=== PATIENT | male | born 1940 | race Caucasian/White ===

== ENCOUNTER 2019-01-12 10:10 | Day surgery (SDC) | payer MEDICARE, BC ==
[~2019-01-12 10:10] MED LIST: ACETAMINOPHEN 1,000 MG/100 ML BTL IV ONE
[2019-01-12] MEDS ORDERED: PROPOFOL 10 MG/ML VIAL IV ONE (10:11)
[2019-01-12] MEDS ORDERED: FENTANYL PF 100MCG/2ML VIAL IV ONE (10:11)
[2019-01-12] MEDS ORDERED: ACETAMINOPHEN W/ CODEINE 300MG/30MG TABLET PO ONE ×3 (10:11→13:22)
[2019-01-12] MEDS ORDERED: MIDAZOLAM HCL 2MG/2ML VIAL IV ONE (10:11)
[2019-01-12] MEDS ORDERED: KETOROLAC 30 MG/ML VIAL IVP ONE (10:11)
[2019-01-12] MEDS ORDERED: LIDOCAINE 2% MDV (20MG/ML) 20ML VIAL IV ONE (10:11)
[2019-01-12] MEDS ORDERED: SEVOFLURANE 250 ML INH ONE (10:11)
[2019-01-12] MEDS ORDERED: ONDANSETRON HCL IV 4 MG/2 ML VIAL IVP ONE (10:11)
[2019-01-12] MEDS ORDERED: RINGERS SOLUTION,LACTATED 1,000 ML IV ONE (12:14)
[2019-01-12] MEDS ORDERED: MORPHINE SULFATE 10 MG/ML VIAL IM ONE (12:29)
[2019-01-12] MEDS ORDERED: MORPHINE SULFATE 4 MG/ML VIAL IM ONE (13:00)
--- NOTE | 2019-01-13 07:10 | Operative Note ---
DATE OF SURGERY: 01/12/2019 Surgeon: Marcus Parish DO PREOPERATIVE DIAGNOSIS: Dupuytren's contracture of the left palm and left ring finger. POSTOPERATIVE DIAGNOSIS: Dupuytren's contracture of the left palm and left ring finger. OPERATION: Fasciotomy of the left ring finger and left palm using 3.5 loop magnification. DESCRIPTION OF PROCEDURE: This 78-year-old male was taken to the operating room and placed in the supine position on the operating room table. General anesthetic was administered. The left upper extremity was elevated. It was prepped with Hibiclens and draped in the usual sterile fashion. It was exsanguinated and the tourniquet inflated to 250 mmHg. The lead hand was used to support the hand during the operative procedure, and we began by making a zigzag type incision starting at approximately the level of the base of the thumb overlying the 4th ray, and dissection was carried down to the level of the metacarpophalangeal joint and an incision was made over the proximal phalanx as well because of contracted tissue also being identified in the finger. Once the incision had been completely opened, it was necessary for us to do some undermining under the skin to release the contractures in the skin, and the proximal edge of the cord was grasped and it was detached proximally first and then it was elevated and using blunt and sharp dissection on both sides, we were able to peel it down to the level of the metacarpal head. It broadened out in this location and then we extended down into the finger taking care to avoid the neurovascular structures. Once the cord had been removed, the wound was irrigated with lactated Ringer's solution and hemostasis was obtained with the electrocautery. We felt that the cord and contracture had been satisfactorily removed. The finger went completely straight. We then closed this wound with interrupted 6-0 nylon sutures, corner stitches being placed at the zigzag portions of the incision and standard simple sutures in the remainder of the incision. After completion, sterile dressings were applied with a plaster splint with the metacarpophalangeal joint of the ring finger in full extension and this was a well-padded splint in the palm with fluffs. The patient was then taken to the recovery room in satisfactory condition. GROSS PATHOLOGY: The patient demonstrated Dupuytren's contracture. There were multiple contractures in the skin just below the metacarpal head at the distal palmar line, and these were released from the palmar fascia and then the palmar fascia cord was released into the ring finger. The operative procedure was performed with 3.5 loop magnification. CC: MD FLORENCIO Dee
== END 2019-01-12 13:30 | disposition home or self-care (01) ==
LOC: SUR 10:10
PROVIDERS: ATTEND Orthopaedic Surgery
DX: M72.0 Palmar fascial fibromatosis [Dupuytren] (principal); E78.00 Pure hypercholesterolemia, unspecified; N40.0 Benign prostatic hyperplasia without lower urinary tract symptoms; K21.9 Gastro-esophageal reflux disease without esophagitis
CPT/HCPCS: 26045; 01810; J1885; J2405; J3010; J2270; J7120

== ENCOUNTER 2019-08-05 15:30 | Emergency (ER) | payer MEDICARE, BC ==
--- NOTE | 2019-08-05 16:02 | Emergency Department Record ---
History of Present Illness - General Chief complaint: Nausea, Vomiting, Diarrhea Stated complaint: POSSIBLE C-DIF Time Seen by Provider: 08/05/19 15:52 Mode of Arrival: Ambulatory - History of Present Illness Initial comments: diarrhea which started 5 days ago with 20 times per day and he was on augmentin about 3 weeks ago for bronchitis and he has chronic diarrhea because he has lots of bile. Patient is using imodium and cholesttyramine Onset/Timin -: Days(s) Description of Diarrhea: Mucous Associated Abdominal Pain: Yes Location: Diffuse Quality: Cramping Consistency: Intermittent Improves with: None Worsens with: None Associated Symptoms: Other - Related Data Home Medications Medication Instructions Recorded Confirmed Last Taken C,E,Zinc,Copper 24/Om3/Lut/Naldo 1 each PO DAILY 08/05/19 08/05/19 Unknown [Ocuvite Adult 50 Plus Softgel] Cartilage/Collagen/Bor/Hyalur 1 each PO DAILY 08/05/19 08/05/19 Unknown [Move Free Ultra Tablet] Colestipol HCl 1 gm PO DAILY 08/05/19 08/05/19 Unknown Krill/Om-3/Dha/Epa/Phospho/Ast 1 each PO DAILY 08/05/19 08/05/19 Unknown [Megared [place]-3 Krill Oil Sfgl] Allergies Allergy/AdvReac Type Severity Reaction Status Date / Time Sulfa (Sulfonamide Allergy HIVES Unverified 07/06/19 08:07 Antibiotics) cefaclor [From Ceclor] AdvReac RASH Unverified 07/06/19 08:07 ranitidine HCl [From Zantac] AdvReac ITCHING Unverified 07/06/19 08:07 Travel Screening - Travel/Exposure Within Last 30 Days Have you traveled within the last 30 days?: No Past Medical History - SOCIAL HISTORY Smoking Status: Former smoker - RESPIRATORY Hx Respiratory Disorders: Yes Hx Bronchitis: Yes - CARDIOVASCULAR Hx Cardio Disorders: No - NEURO Hx Neuro Disorders: Yes Hx Dizziness: Yes (AT TIMES R/T DEHYDRATION) - GI Hx GI Disorders: Yes Hx Reflux: Yes Hx Ulcer: Yes Hx of Polyps: Yes Comment:: chronic diarrhea - Hx Genitourinary Disorders: Yes Hx Bladder Problem: Yes (NOCTURIA) Hx Kidney Stones: Yes (HX OF) Hx Prostate Problems: Yes - ENDOCRINE Hx Endocrine Disorders: No - MUSCULOSKELETAL Hx Musculoskeletal Disorders: Yes Hx Arthritis: Yes Comment:: DUPUTRENS LEFT PALM AND 4 TH FINGER - PSYCH Hx Psych Problems: Yes Hx Depression: Yes - HEMATOLOGY/ONCOLOGY Hx Hematology/Oncology Disorders: Yes Hx Cancer: Yes (basal cell nose AND BACK) Hx Radiation Therapy: Yes Family Medical History Any Significant Family History?: Yes Hx Cancer: Mother *Cancer Comment: Mother-lymphoma Hx Heart Disease: Father Hx Stroke: Father Course Vital Signs 08/05/19 15:38 Temperature 97.9 F Pulse Rate 73 Respiratory 18 Rate Blood Pressure 125/88 Pulse Ox 95 Medical Decision Making - Data Complexity MDM Data: Labs Ordered and/or Reviewed (cdiff negative) - Lab Data Result diagrams: 08/05/19 16:35 08/05/19 16:35 Disposition Clinical Impression: Diarrhea Qualifiers: Diarrhea type: unspecified type Qualified Code(s): R19.7 - Diarrhea, unspecified Disposition: Home, Self-Care Condition: (2) Stable Instructions: Acute Diarrhea (ED), Chronic Diarrhea (ED) Additional Instructions: follow up with family Dr in 4 days continue current meds Forms: Patient Portal Access Time of Disposition: 17:58 Quality - Quality Measures Quality Measures: N/A - Blood Pressure Screening Does Patient Have Any of the Following: No Blood Pressure Classification: Pre-Hypertensive BP Reading Systolic Measurement: 125 Diastolic Measurement: 88 Screening for High Blood Pressure: < Pre-Hypertensive BP, F/U Documented > [G8950] Pre-Hypertensive Follow-up Interventions: Referral to alternative/primary care provider.
[2019-08-05] MEDS ORDERED: 0.9 % SODIUM CHLORIDE 1,000 ML BAG IV ONE (16:06)
[2019-08-05 16:44] LABS: ABSOLUTE NEUTROPHIL COUNT 2.12; BASO % 1.1 % (0-6); EOS % 4.8 % (0-6); GRAN % 47.9 % (47-80); HEMOGLOBIN 14.2 gm/dl (14.0-18.0); LYMPH % 38.7 % (16-45); MEAN CORPUSCULAR HEMOGLOBIN 31.7 pg (27-33); MEAN PLATELET VOLUME 10.1 fl (7.4-10.4); MONO % 7.5 % (0-9); PLATELET COUNT 193 K/uL (130-400); RED BLOOD COUNT 4.48 M/uL (4.40-5.70); RED CELL DISTRIBUTION WIDTH 13.1 % (11.5-14.5); WHITE BLOOD COUNT W/O DIFF 4.4 K/uL (4.2-12.2)
[2019-08-05 16:57] LABS: BLOOD UREA NITROGEN 18 mg/dL (8-23)
[2019-08-05 16:58] LABS: EST GLOMERULAR FILTRATION RATE > 60 mL/min; LIPASE 34 U/L (13-60); TOTAL PROTEIN 7.4 g/dL (6.6-8.7)
[2019-08-05 17:00] LABS: GLUCOSE,RANDOM 126 mg/dL (74-109)
[2019-08-05 17:03] LABS: ALBUMIN 4.5 g/dL (4.0-5.0); ALKALINE PHOSPHATASE 79 U/L (40-129); ALT/SGPT 35 U/L (<41); AST/SGOT 25 U/L (10.0-50.0); BILIRUBIN,DIRECT < 0.2 mg/dL (0-0.3)
== END 2019-08-05 18:22 | disposition home or self-care (01) ==
LOC: ER 15:30
DX: R19.7 Diarrhea, unspecified (principal); R11.2 Nausea with vomiting, unspecified; Z87.891 Personal history of nicotine dependence
CPT/HCPCS: 80048; 80076; 82272; 83690; 85025; 87493; 96360; 99284; J7030

== ENCOUNTER 2019-11-09 06:14 | Day surgery (SDC) | payer MEDICARE ==
[~2019-11-09 06:14] MED LIST changes: -ACETAMINOPHEN 1,000 MG/100 ML BTL IV ONE; +ACETAMINOPHEN 1,000 MG/100 ML BTL IVPB ONE
[2019-11-09] MEDS ORDERED: MIDAZOLAM HCL 2MG/2ML VIAL IV ONE (06:15)
[2019-11-09] MEDS ORDERED: FENTANYL PF 100MCG/2ML VIAL IV ONE (06:15)
[2019-11-09] MEDS ORDERED: LIDOCAINE 2% MDV (20MG/ML) 20ML VIAL IV ONE (06:15)
[2019-11-09] MEDS ORDERED: PROPOFOL 10 MG/ML VIAL IV ONE (06:15)
[2019-11-09] MEDS ORDERED: RINGERS SOLUTION,LACTATED 1,000 ML IV ONE (06:45)
[2019-11-09] MEDS ORDERED: LIDOCAINE 1% MPF 100MG/10ML STERILE-PAK AMPULE SQ ONE (08:31)
--- NOTE | 2019-11-09 12:29 | Operative Note ---
DATE OF SURGERY: 11/09/2019 SURGEON: Marcus Parish D.O. REFERRING PHYSICIAN: Jono Bobo M.D. PREOPERATIVE DIAGNOSIS: 1. TRIGGER FINGER OF THE LEFT RING FINGER. 2. TRIGGER FINGER OF THE LEFT LITTLE FINGER. POSTOPERATIVE DIAGNOSIS: 1. TRIGGER FINGER OF THE LEFT RING FINGER. 2. TRIGGER FINGER OF THE LEFT LITTLE FINGER. OPERATION: 1. TENOTOMY A1 SOBEIDA LEFT RING FINGER USING 3.5 LOUPE MAGNIFICATION. 2. TENOTOMY A1 SOBEIDA LEFT LITTLE FINGER USING 3.5 LOUPE MAGNIFICATION. DESCRIPTION: This 79-year-old male was taken to the Operating Room and placed in the supine position on the operating room table. Assisted local anesthesia was used, 1% Xylocaine plain was used as a local anesthetic. The left upper extremity was elevated, prepped with Hibiclens and draped in the usual sterile fashion. It was exsanguinated and the tourniquet was inflated to 200 mmHg after we had injected 1% Xylocaine plain over the incision site in the palm overlying the metacarpal head of the fourth and fifth metacarpals of the left hand. Once satisfactory anesthetic had been achieved, a longitudinal incision was made overlying the A1 sobeida in the little finger. The little finger was performed first dissecting down through the skin and subcutaneous tissue. The subcutaneous tissue was divided to expose the proximal edge of the A1 sobeida which was easily identified and then split from its proximal margin to the distal margin under vision. The little finger was flexed and extended to demonstrate that there was no evidence of catching, locking, or impingement of any kind. The wound was then irrigated and closed with interrupted 6-0 nylon suture in the skin. We then directed our attention to the ring finger performing the same procedure with a longitudinal incision overlying the metacarpal head and the palmar surface of the hand. Dissection was carried down through the skin and subcutaneous tissue. The proximal edge of the A1 sobeida was easily identified on the fourth finger as well and it was split from its proximal to its distal margin under direct vision and again the tendon was seen in motion by flexion and extension of the ring finger. No catching or locking was identified and the wound was irrigated and closed with interrupted 6-0 nylon suture in the skin. Sterile dressings were applied after the wound had been closed with the 6-0 nylon. After the dressings were applied the patient was taken to the Recovery Room in satisfactory condition. GROSS PATHOLOGY: This patient demonstrated trigger finger of the ring and little finger with nodularity of the sublimis tendon being identified, but after incision of the A1 sobeida's no catching or locking of the finger was demonstrated. JOB NUMBER: [id number] MTDD
== END 2019-11-09 09:30 | disposition home or self-care (01) ==
LOC: SUR 06:14
PROVIDERS: ATTEND Orthopaedic Surgery
DX: M65.352 Trigger finger, left little finger (principal); E78.00 Pure hypercholesterolemia, unspecified; N40.0 Benign prostatic hyperplasia without lower urinary tract symptoms; K21.9 Gastro-esophageal reflux disease without esophagitis
CPT/HCPCS: 26055 ×2; 01810; J3010; J3490; J7120